=== PATIENT | female | born 1990 | race Hispanic/Latino ===

== ENCOUNTER 2021-01-30 00:12 | Emergency (ER) | payer OTHER ==
[~2021-01-30] VITALS: Ht 162.6 cm; Wt 79.4 kg
[2021-01-30 00:15] VITALS: BP 137/85
[2021-01-30] MEDS ORDERED: DIPH,PERTUSS(ACELL),TET VAC/PF 0.5 ML VIAL IM ONE (00:30)
[2021-01-30] MEDS ORDERED: AMOX/CLAV 875/125MG TAB PO ONE (00:30)
[2021-01-30] MEDS ORDERED: AMOX-429 PO (00:31)
[2021-01-30] MEDS ORDERED: TETANUS/DIPHTHERIA TOXOID [ADULT] 0.5 ML VIAL IM ONE (00:33)
== END 2021-01-30 00:41 | disposition home or self-care (01) ==
LOC: EDH 00:12
DX: O9A.211 Injury, poisoning and certain other consequences of external causes complicating pregnancy, first trimester (principal); S61.452A Open bite of left hand, initial encounter; Z3A.01 Less than 8 weeks gestation of pregnancy; W54.0XXA Bitten by dog, initial encounter; Y93.89 Activity, other specified; Y92.89 Other specified places as the place of occurrence of the external cause; Y99.8 Other external cause status
CPT/HCPCS: 90471; 90714; 90715